=== PATIENT | male | born 1965 | race Caucasian/White ===

== ENCOUNTER 2019-10-18 09:46 | Emergency (ER) | payer BC ==
[~2019-10-18] VITALS: Ht 182.9 cm; Wt 83.9 kg
--- NOTE | 2019-10-18 10:08 | Emergency Department Note ---
History of Present Illnes History of Present Illness Chief Complaint: Neurological History of Present Illness This is a 54 year old male Chief Complaint Comment WHILE DRIVING, BECAME LIGH THEADED X 2 LASTING APPROX 10s ALONG WITH EPISODE OF DIFFICULTY BREATHING, AND HARD TO CATCH HIS BREATH. C/O OF SHARP PAIN TO LEFT ARM THAT RUNS FROM ELBOW TO SHOULDER. Endorses a brief episode of Cp with this. This has been going on for years intermittently. He sates he has had a negative work up in the past. No symptoms at this time. 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 Any updates have been documented here. Past Medical History Recent Fever: No Clinical Suspicion of Infectio: No New/Unexplained Change in Ment: No Past Medical History: Hypertension Past Surgical History: Back Surgery Other Surgery: 5 CERVICAL INFUSION LOWER BACK SX Social History Smoking Cessation: Never Smoker Counseling Performed: No Alcohol Use: None Any Illegal Drug Use: No Other Any Pre-Existing Lines (PICC,: No Review of Systems Review of Systems Constitutional: Reports no symptoms EENTM: Reports no symptoms Cardiovascular: Reports no symptoms Respiratory: Reports no symptoms Gastrointestinal: Reports no symptoms Genitourinary: Reports no symptoms Musculoskeletal: Reports no symptoms Integumentary: Reports no symptoms Neurological: Reports no symptoms Psychological: Reports no symptoms Endocrine: Reports no symptoms Hematological/Lymphatic: Reports no symptoms Physical Exam Related Data Allergies: Coded Allergies: No Known Allergies (Unverified , 10/18/19) Triage Vital Signs Vital Signs Date Time Temp Pulse Resp B/P (MAP) Pulse Ox O2 Delivery O2 Flow Rate FiO2 10/18/19 09:50 98.7 70 18 138/86 97 Room Air Vital signs reviewed: Yes Physical Exam CONSTITUTIONAL Constitutional: Present well-developed, Present well-nourished HENT HENT: Present normocephalic, Present atraumatic, Present oropharynx clear/moist, Present nose normal HENT L/R: Present left ext ear normal, Present right ext ear normal EYES Eyes: Reports PERRL, Reports conjunctivae normal NECK Neck: Present ROM normal PULMONARY Pulmonary: Present effort normal, Present breath sounds normal CARDIOVASCULAR Cardiovascular: Present regular rhythm, Present heart sounds normal, Present capillary refill normal, Present normal rate GASTROINTESTINAL Abdominal: Present soft, Present nontender, Present bowel sounds normal GENITOURINARY Genitourinary: Present exam deferred SKIN Skin: Present warm, Present dry MUSCULOSKELETAL Musculoskeletal: Present ROM normal NEUROLOGICAL Neurological: Present alert, Present oriented x 3, Present no gross motor or sensory deficits PSYCHOLOGICAL Psychological: Present mood/affect normal, Present judgement normal Procedures 12 Lead ECG Interpretation ECG Interpretation : ECG: ECG 1 Can Vacuum Tester: Interpreted by ED physician Date: Oct 18, 2019 Rhythm: sinus rhythm Rate: normal BPM: 60 QRS axis: normal ST segments normal: Yes T waves normal: Yes Clinical Impression: normal ECG Assessment & Plan Medical Decision Making MDM 54-year-old male with a past medical history significant for hypertension who presents to the emergency department for a brief episode of chest discomfort and arm tingling. He states this is intermittently in the past. Examination shows no overall well-appearing male in no acute distress, vital signs stable, within except limits. Initial differential includes ACS versus pneumonia versus muscular skeletal pain versus anxiety. Workup shows no sig abnormalities. Doubt emergent process at this time. I discussed results patient as well as expected disease time course and management. They will follow up with their primary care provider or return to the emergency department for new or worsening symptoms. Patient's appropriate for discharge. Part of this note was dictated with Reed and is subject to recognition errors. Reassessment Reassessment time: 10:14 Reassessment Well appearing, NAD Assessment & Plan Final Impression: (1) Chest discomfort Depart Disposition: HOME, SELF-CARE Last Vital Signs Date Time Temp Pulse Resp B/P (MAP) Pulse Ox O2 Delivery O2 Flow Rate FiO2 10/18/19 10:02 72 12 141/81 98 Room Air 10/18/19 09:50 98.7 MAXIMINO CASTELLANO MD Oct 18, 2019 10:08
[2019-10-18] MEDS ORDERED: ASPIRIN 81 MG CHEW TAB PO ONE (10:15)
[2019-10-18 10:23] LABS: BASOPHILS % 1.3 % (0.0-1.0); EOSINOPHILS # (AUTO) 0.1 (0.0-0.4); EOSINOPHILS % 2.5 % (0.0-6.0); HEMATOCRIT 45.7 % (38.2-49.6); HEMOGLOBIN 15.6 g/dL (14.0-18.0); LYMPHOCYTES # (AUTO) 1.5 (1.0-3.2); LYMPHOCYTES % 45.5 % (18.0-39.1); MEAN CORPUSCULAR HEMOGLOBIN 29.2 pg (28-32); MEAN CORPUSCULAR HGB CONC 34.1 g/dL (31-35); MEAN CORPUSCULAR VOLUME 85.4 fL (81-99); MONOCYTES # (AUTO) 0.5 (0.2-0.8); MONOCYTES % 16.3 % (4.4-11.3); NEUTROPHILS # (AUTO) 1.1 (2.1-6.9); NEUTROPHILS % 34.1 % (38.7-80.0); PLATELET COUNT 257 x10e3/uL (140-360); RED BLOOD COUNT 5.35 x10e6/uL (4.3-5.7); RED CELL DISTRIBUTION WIDTH 12.2 % (11.7-14.4)
[2019-10-18 10:41] LABS: ALANINE AMINOTRANSFERASE 33 IU/L (0-55); ALBUMIN 4.6 g/dL (3.5-5.0); ALBUMIN/GLOBULIN RATIO 1.4 (0.8-2.0); ALKALINE PHOSPHATASE 61 IU/L (40-150); ANION GAP 16.1 mmol/L (8-16); BLOOD UREA NITROGEN 13 mg/dL (7-26); BUN/CREATININE RATIO 14 (6-25); CALCIUM 9.8 mg/dL (8.4-10.2); CARBON DIOXIDE 24 mmol/L (22-29); CHLORIDE 104 mmol/L (98-107); CREATINE KINASE 166 IU/L (30-200); EST GLOMERULAR FILTRATION RATE > 60 ML/MIN (60-); GLUCOSE 99 mg/dL (74-118); POTASSIUM 4.1 mmol/L (3.5-5.1); SODIUM 140 mmol/L (136-145)
--- NOTE | 2019-10-18 10:46 | Diagnostic Imaging Report ---
TECHNIQUE: Frontal view of the chest. INDICATION: ^SHORT OF BREATH ^[id number] ^[id number] COMPARISON: None DISCUSSION: Limited evaluation due to portable technique. Lines and hardware: Overlying EKG leads are noted. Partially visualized cervical fusion changes are noted. Heart and mediastinum: Cardiomediastinal silhouette, pulmonary vascularity and mediastinal contours are within normal limits. Lungs and pleura: No focal airspace consolidation. No pleural effusion. No pneumothorax. Soft tissues and bones: No acute abnormality. Focal advanced degenerative changes of the right acromioclavicular joint are noted. IMPRESSION: Negative for acute intrathoracic process. Signed by: Joshua Castellon MD on 10/18/2019 10:42 AM
--- OUTSIDE RECORDS SUMMARY | 2019-10-18 11:10 | XMS REPORT | Continuity of Care Document ---
Author Author [facility] t Organization [facility] Address [address] [place] [address] Phone Unavailable Care Team Providers Care Architect Marine Name Role Phone Wilmar Sarabia Attphytristen Unavailable Payers Payer Name Policy Type Policy Number Effective Date Expiration Date S ource Problems This patient has no known problems. Allergies, Adverse Reactions, Alerts Allergy Name Allergy Type Status Severity Reaction(s) Onset Date Inacti ve Date Treating Clinician Comments Source No Known Allergies DA Active U 2019-07-04 00:00:00 [facility] No Known Allergies DA Active U 2019-03-10 00:00:00 [facility] No Known Allergies DA Active U 2015-07-23 00:00:00 [facility] Medications This patient has no known medications. Procedures This patient has no known procedures. Results Test Description Test Time Test Comments Results Result Comments Source CHEST SINGLE (PORTABLE) 2019-10-18 10:41:00 [facility] [address] [address] Patient Name: JESUS MARS MR #: [id number] : 1965 Age/Sex: 54/M Req #: [id number] Adm Physician: Ordered by: Maximino Sarabia MD Report #: [id number] Location: ER Room/Bed: Procedure: [id number] DX/CHEST SINGLE (PORTABLE) Exam Date: 10/18/19 Exam Time: 957 REPORT STATUS: Signed TECHNIQUE: Frontal view of the chest. INDICATION: SHORT OF BREATH [id number] COMPARISON: None DISCUSSION: Limited evaluation due to portable technique. Lines and hardware: Overlying EKG leads are noted. Partially visualized cervical fusion changes are noted. Heart and mediastinum: Cardiomediastinal silhouette, pulmonary vascularity and mediastinal contours are within normal limits. Lungs and pleura: No focal airspace consolidation. No pleural effusion. No pneumothorax. Soft tissues and bones: No acute abnormality. Focal advanced degenerative changes of the right acromioclavicular joint are noted. IMPRESSION: Negative for acute intrathoracic process. Signed by: Adebayo Castellon MD on 10/18/2019 10:42 AM Dictated By: ADEBAYO CASTELLON MD 1042 Transcribed By: VILMA on 10/18/19 1042 COPY TO: MAXIMINO SARABIA MD COMPREHENSIVE METABOLIC PANEL 2019-09-29 15:07:00 Test Item SODIUM (test code = NA) 134 mmol/L 137-145 L POTASSIUM (test code = K) 3.8 mmol/L 3.4-5.0 N CHLORIDE (test code = CL) 99 mmol/L 98-107 N CARBON DIOXIDE (test code = CO2) 28 mmol/L 22-30 N GLUCOSE (test code = GLU) 94 mg/dL 74-106 N BLOOD UREA NITROGEN (test code = BUN) 16 mg/dL 9-20 N GLOMERULAR FILTRATION RATE (test code = GFR) 149 >60 The estimated glomerular filtration rate is computed usingpatient race, age (>18), sex, and serum creatinine. If anyof the needed data elements are missing the Laboratory cannot compute an estimation of the glomerular filtration rate. CREATININE (test code = CREAT) 0.6 mg/dL 0.7-1.3 L TOTAL PROTEIN (test code = PROT) 6.7 g/dL 6.3-8.2 N ALBUMIN (test code = ALB) 3.8 g/dL 3.5-5.0 N CALCIUM (test code = CA) 8.1 mg/dL 8.4-10.2 L BILIRUBIN TOTAL (test code = BILT) 0.6 mg/dL 0.2-1.3 N "A positive bias may occur for patients taking Eltrombopag(a bone marrow stimulant used to treat thrombocytopenia andaplastic anemia)." BILIRUBIN CONJUGATED (test code = BILCON) 0 mg/dL 0-0.3 N "A positive bias may occur for patients taking Eltrombopag(a bone marrow stimulant used to treat thrombocytopenia andaplastic anemia)." CONJUGATED BILIRUBIN IS THE REPLACEMENT ASSAY FOR DIRECTBILIRUBIN. BILIRUBIN UNCONJUGATED (test code = BILUNC) 0.3 mg/dL 0-1.1 N SGOT/AST (test code = AST) 67 U/L 15-46 H SGPT/ALT (test code = ALT) 59 U/L 0-34 H ALKALINE PHOSPHATASE (test code = ALKP) 49 U/L 38-126 N COMPREHENSIVE METABOLIC [id number] 15:06:00* Test Item Value Reference Range Interpretation Comments SODIUM (test code = NA) 134 mmol/L 137-145 L POTASSIUM (test code = K) 3.8 mmol/L 3.4-5.0 N CHLORIDE (test code = CL) 99 mmol/L 98-107 N CARBON DIOXIDE (test code = CO2) 28 mmol/L 22-30 N GLUCOSE (test code = GLU) 94 mg/dL 74-106 N BLOOD UREA NITROGEN (test code = BUN) 16 mg/dL 9-20 N GLOMERULAR FILTRATION RATE (test code = GFR) 149 >60 The estimated glomerular filtration rate is computed usingpatient race, age (>18), sex, and serum creatinine. If anyof the needed data elements are missing the Laboratory cannot compute an estimation of the glomerular filtration rate. CREATININE (test code = CREAT) 0.6 mg/dL 0.7-1.3 L TOTAL PROTEIN (test code = PROT) 6.7 g/dL 6.3-8.2 N ALBUMIN (test code = ALB) 3.8 g/dL 3.5-5.0 N CALCIUM (test code = CA) 8.1 mg/dL 8.4-10.2 L BILIRUBIN TOTAL (test code = BILT) 0.6 mg/dL 0.2-1.3 N "A positive bias may occur for patients taking Eltrombopag(a bone marrow stimulant used to treat thrombocytopenia andaplastic anemia)." BILIRUBIN CONJUGATED (test code = BILCON) 0 mg/dL 0-0.3 N "A positive bias may occur for patients taking Eltrombopag(a bone marrow stimulant used to treat thrombocytopenia andaplastic anemia)." CONJUGATED BILIRUBIN IS THE REPLACEMENT ASSAY FOR DIRECTBILIRUBIN. BILIRUBIN UNCONJUGATED (test code = BILUNC) 0.3 mg/dL 0-1.1 N SGOT/AST (test code = AST) 67 U/L 15-46 H SGPT/ALT (test code = ALT) U/L 0-34 ALKALINE PHOSPHATASE (test code = ALKP) 49 U/L 38-126 N CBC W/AUTO [id number] 14:15:00* Test Item Value Reference Range Interpretation Comments WHITE BLOOD CELL (test code = WBC) 2.5 x10 3/uL 5.0-12.0 L RED BLOOD CELL (test code = RBC) 5.13 x10 6/uL 4.70-6.10 N HEMOGLOBIN (test code = HGB) 14.9 g/dL 14.0-18.0 N HEMATOCRIT (test code = HCT) 45.5 % 37.0-49.0 N MEAN CELL VOLUME (test code = MCV) 89 fL 80-94 N MEAN CELL HGB (test code = MCH) 29.0 pg 27-31 N MEAN CELL HGB CONCENTRATION (test code = MCHC) 32.7 g/dL 33-37 L RED CELL DISTRIBUTION WIDTH (test code = RDW) 11.9 % 11.5-15. 5 N PLATELET COUNT (test code = PLT) 166 x10 3/uL 130-400 N MEAN PLATELET VOLUME (test code = MPV) 9.5 fL 9.4-16.4 N NEUTROPHIL % (test code = NT%) 61.1 % 43-65 N IMMATURE GRANULOCYTE % (test code = IG%) 0.4 % 0.0-2.0 N LYMPHOCYTE % (test code = LY%) 34.6 % 20.5-45.5 N MONOCYTE % (test code = MO%) 3.9 % 5.5-11.7 L EOSINOPHIL % (test code = EO%) 0.0 % 0.9-2.9 L BASOPHIL % (test code = BA%) 0.0 % 0.2-1.0 L NUCLEATED RBC % (test code = NRBC%) 0.0 % 0-1.0 N NEUTROPHIL # (test code = NT#) 1.55 x10 3/uL 2.2-4.8 L IMMATURE GRANULOCYTE # (test code = IG#) 0.01 x10 3/uL 0-0.03 N LYMPHOCYTE # (test code = LY#) 0.88 x10 3/uL 1.3-2.9 L MONOCYTE # (test code = MO#) 0.10 x10 3/uL 0.3-0.8 L EOSINOPHIL # (test code = EO#) 0.00 x10 3/uL 0.0-0.2 N BASOPHIL # (test code = BA#) 0.00 x10 3/uL 0.0-0.1 N PLATELET ESTIMATE (test code = PLTEST) ADEQUATE ADEQUATE PLATELET MORPHOLOGY (test code = PLTMORPH) NORMAL NORMAL WBC [id number] 14:15:00* Test Item Value Reference Range Interpretation Comments TOTAL CELLS COUNTED (test code = TCC) 100 #CELLS SEGMENTED NEUTROPHILS (test code = SEG) 64 % 43-65 N BAND NEUTROPHIL (test code = BAND) 2 % 0-1 H LYMPHOCYTE (test code = LYMPH) 14 % 20.5-45.5 L ATYPICAL LYMPH (test code = ALYMPH) 13 % 0-1 H MONOCYTE (test code = MON) 7 % 5.5-11.7 N ANISOCYTOSIS (test code = ANISO) 1+ NONE SEEN A MICROCYTOSIS (test code = MICR) 1+ NONE SEEN A CBC W/AUTO [id number] 14:14:00* Test Item Value Reference Range Interpretation Comments WHITE BLOOD CELL (test code = WBC) 2.5 x10 3/uL 5.0-12.0 L RED BLOOD CELL (test code = RBC) 5.13 x10 6/uL 4.70-6.10 N HEMOGLOBIN (test code = HGB) 14.9 g/dL 14.0-18.0 N HEMATOCRIT (test code = HCT) 45.5 % 37.0-49.0 N MEAN CELL VOLUME (test code = MCV) 89 fL 80-94 N MEAN CELL HGB (test code = MCH) 29.0 pg 27-31 N MEAN CELL HGB CONCENTRATION (test code = MCHC) 32.7 g/dL 33-37 L RED CELL DISTRIBUTION WIDTH (test code = RDW) 11.9 % 11.5-15. 5 N PLATELET COUNT (test code = PLT) 166 x10 3/uL 130-400 N MEAN PLATELET VOLUME (test code = MPV) 9.5 fL 9.4-16.4 N NEUTROPHIL % (test code = NT%) 61.1 % 43-65 N IMMATURE GRANULOCYTE % (test code = IG%) 0.4 % 0.0-2.0 N LYMPHOCYTE % (test code = LY%) 34.6 % 20.5-45.5 N MONOCYTE % (test code = MO%) 3.9 % 5.5-11.7 L EOSINOPHIL % (test code = EO%) 0.0 % 0.9-2.9 L BASOPHIL % (test code = BA%) 0.0 % 0.2-1.0 L NUCLEATED RBC % (test code = NRBC%) 0.0 % 0-1.0 N NEUTROPHIL # (test code = NT#) 1.55 x10 3/uL 2.2-4.8 L IMMATURE GRANULOCYTE # (test code = IG#) 0.01 x10 3/uL 0-0.03 N LYMPHOCYTE # (test code = LY#) 0.88 x10 3/uL 1.3-2.9 L MONOCYTE # (test code = MO#) 0.10 x10 3/uL 0.3-0.8 L EOSINOPHIL # (test code = EO#) 0.00 x10 3/uL 0.0-0.2 N BASOPHIL # (test code = BA#) 0.00 x10 3/uL 0.0-0.1 N WBC [id number] 14:14:00* Test Item Value Reference Range Interpretation Comments TOTAL CELLS COUNTED (test code = TCC) #CELLS SEGMENTED NEUTROPHILS (test code = SEG) % 43-65 LYMPHOCYTE (test code = LYMPH) % 20.5-45.5 TROPONIN I [id number] 13:50:00* Test Item Value Reference Range Interpretation Comments TROPONIN I RAPID (test code = TROPIRAP) 0.00 ng/mL 0.00-0.079 N ISTAT TROPONIN I CRITERIA0.00-0.08 ng/mL - Negative>0.08 ng/mL - Positive The use of serial sampling and testing protocol is arecommended practice.An elevated troponin level alone is often not sufficient fordiagnosis of myocardial infarction. Troponin results obtained by different assays may vary.Evaluation of the extent of myocardial damage based onincrease of troponin would be valid only if similarmethodology is used. CBC W/AUTO [id number] 13:40:00* Test Item Value Reference Range Interpretation Comments WHITE BLOOD CELL (test code = WBC) 2.5 x10 3/uL 5.0-12.0 L RED BLOOD CELL (test code = RBC) 5.13 x10 6/uL 4.70-6.10 N HEMOGLOBIN (test code = HGB) 14.9 g/dL 14.0-18.0 N HEMATOCRIT (test code = HCT) 45.5 % 37.0-49.0 N MEAN CELL VOLUME (test code = MCV) 89 fL 80-94 N MEAN CELL HGB (test code = MCH) 29.0 pg 27-31 N MEAN CELL HGB CONCENTRATION (test code = MCHC) 32.7 g/dL 33-37 L RED CELL DISTRIBUTION WIDTH (test code = RDW) 11.9 % 11.5-15. 5 N PLATELET COUNT (test code = PLT) 166 x10 3/uL 130-400 N MEAN PLATELET VOLUME (test code = MPV) 9.5 fL 9.4-16.4 N NEUTROPHIL % (test code = NT%) 61.1 % 43-65 N IMMATURE GRANULOCYTE % (test code = IG%) 0.4 % 0.0-2.0 N LYMPHOCYTE % (test code = LY%) 34.6 % 20.5-45.5 N MONOCYTE % (test code = MO%) 3.9 % 5.5-11.7 L EOSINOPHIL % (test code = EO%) 0.0 % 0.9-2.9 L BASOPHIL % (test code = BA%) 0.0 % 0.2-1.0 L NUCLEATED RBC % (test code = NRBC%) 0.0 % 0-1.0 N NEUTROPHIL # (test code = NT#) 1.55 x10 3/uL 2.2-4.8 L IMMATURE GRANULOCYTE # (test code = IG#) 0.01 x10 3/uL 0-0.03 N LYMPHOCYTE # (test code = LY#) 0.88 x10 3/uL 1.3-2.9 L MONOCYTE # (test code = MO#) 0.10 x10 3/uL 0.3-0.8 L EOSINOPHIL # (test code = EO#) 0.00 x10 3/uL 0.0-0.2 N BASOPHIL # (test code = BA#) 0.00 x10 3/uL 0.0-0.1 N - XR CHEST 1 [id number] 10:33:00 FAX: Jailyn Plata [phone] [place]: St: PRE FAX: Slava Wray [phone] Name: JESUS MARS [facility] : 1965 Age/S: 54/M [address] Unit #: [id number] Loc: [place] [address] Phys: Jailyn Plata [employer] SUPERVISOR Acct: [id number] Dis Date: Status: PRE ER PHONE #: [phone] Exam Date: 09/29/2019 1035 FAX #: [phone] Reason: cp/sob.cough EXAMS: CPT CODE: [id number] XR CHEST 1 V 92860 EXAM: - XR CHEST 1 V Location code:C3 HISTORY: Pneumonia COMPARISON: 07/04/2019 FINDINGS: Frontal view of the chest is submitted. Heart size and vascularity are within normal limits. Minor stable linear scarring/atelectasis present at the left lung base. The lungs are clear of focal consolidation. No effusion or evidence of pneumothorax.. No acute osseous pathology. Cervical hardware is noted. IMPRESSION 1. No radiographic evidence of acute cardiopulmonary process. at 1033 Reported and signed by: Ade Eldridge MD CC: Jailyn Plata [employer] SUPERVISOR; Slava Silva DO Technologist: Agustín Torres Trnscrd Date/Time/By: 09/29/2019 (1033) : By: [email or web address] PAGE 1 Signed Report FAX: Jailyn Plata [phone] [place]: St: PRE FAX: Slava Wray [phone] Name: JESUS MARS [facility] : 1965 Age/S: 54/M [address] Unit #: [id number] Loc: [place], [place] [address] Phys: Jailyn Plata [employer] SUPERVISOR Acct: [id number] Dis Date: Status: PRE ER PHONE #: [phone] Exam Date: 09/29/2019 1035 FAX #: [phone] Reason: cp/sob.cough EXAMS: CPT CODE: [id number] XR CHEST 1 V 63330 <Continued> Orig Print D/T: S: 09/29/2019 (8116) PAGE 2 Signed Report - CT C-SPINE W/O [id number] 15:38:00 FAX: Lexa Hebert [phone] [place]: St: REG FAX: Slava Wray [phone] Name: JESUS MARS [facility] : 1965 Age/S: 54/M [address] Unit: [id number] Loc: [place] [address] Phys: Lexa Delacruz MD Acct: [id number] Dis Date: Status: REG CLI PHONE #: [phone] Exam Date: 07/07/2019 1301 FAX #: [phone] Reason: OTHER CERVICAL DISC DI SPLACEMENT, UNSP CERVICAL EXAMS: CPT CODE: [id number] CT C-SPINE W/O CONT 33209 Dictation location: U19. CT CERVICAL SPINE WITHOUT CONTRAST; SAGITTAL AND CORONAL REFORMATTED VIEWS. HISTORY: OTHER CERVICAL DISC DISPLACEMENT, UNSP CERVICAL REGION COMPARISON: Outside CT cervical spine on 03/21/19 TECHNIQUE: Axial CT images of the cervical spine were obtained with coronal and sagittal reformatted v iews. Automated exposure control, iterative reconstruction technique, and /or adjustment of mA and/or kV according to patient's size was utilized fo r radiation dose reduction. IV CONTRAST: None. FINDI NGS: The cervical alignment is straightened. Again noted is an an terior cervical fusion from C3-C7 with an anterior plate, interbody cages and intervertebral screws. No bony fusion of the disc levels. There is also posterior fusion from C3-C7 with bilateral rods and translaminar screws. No definite evidence of hardware complication. The right marine mechanic ior screws at C3, C4 and C5 abut the foramen transversarium but likely topete s not extend into it. The right posterior screw at C6 is likely at the ed ge of the foramina without definite extension into it. No cervical spine fracture or subluxation. No prevertebral soft tissue swelling. At C2-C3, left uncovertebral hypertrophy and facet arthrosis causes moderate left neuroforaminal narrowing. At C3-C4, right uncov ertebral hypertrophy narrows the right lateral recess with moderate to sev ere right neuroforaminal narrowing. At C4-C5 bilateral uncovertebr al hypertrophy causes no significant spinal canal stenosis and neuroforami nal narrowing. At C5-C6, bilateral uncovertebral hypertrophy cause s no significant spinal canal stenosis and moderate bilateral neuroforamin al narrowing. At C6-C7, uncovertebral hypertrophy more pronounced on the left side PAGE 1 Signed Report (CONTINUED) FAX: Lexa Hebert [phone] [place]: [facility]: REG FAX: Slava Wray [phone] Name: JESUS MARS [facility] : 1965 Age/S: 54/ M [address] Unit: [id number] Loc: [place] [address] Phys: Lexa Delacruz MD Acct: [id number] Dis Date: atus: REG CLI PHONE #: [phone] Exam Kevin e: 07/07/2019 1301 FAX #: [phone] Reason: OTHER CERVICAL DISC DISPLACEMENT, UNSP CERVICAL EXAMS: CPT CODE: [id number] CT C-SPINE W/O CONT 15466 <Continued> causes mild right and moderate left neuroforaminal narrowing without significant spinal canal stenosis. At C7-T1, no bony spinal canal stenosis and neuroforaminal narrowing. IMPRESSION: Anterior posterior cervical fusion of C3-C7 without bony fusion of the disc levels. Cervical spondylosis with multilevel neuroforaminal narrowing as described above. at 1538 Reported and signed by: Allie Anderson MD CC: Lexa Delacruz MD; Slava Silva DO Technologist: Poly Hays Trnscrd Dt/Tm: 07/07/2019 (5978) [email or web address] Orig Print D/T: S: 07/07/2019 (8407 PAGE 2 Signed Report BASIC METABOLIC [id number] 09:37:00* Test Item Value Reference Range Interpretation Comments SODIUM (test code = NA) 141 mmol/L 136-145 N POTASSIUM (test code = K) 3.6 mmol/L 3.5-5.1 N CHLORIDE (test code = CL) 106.0 mmol/L 98-107 N CARBON DIOXIDE (test code = CO2) 30.0 mmol/L 21-32 N ANION GAP (test code = GAP) 8.6 10-20 L GLUCOSE (test code = GLU) 106 mg/dL 74-106 N BLOOD UREA NITROGEN (test code = BUN) 14 mg/dL 7-18 N GLOMERULAR FILTRATION RATE (test code = GFR) > 60 mL/min >=60 Estimated GFR by using Modified MDRD formula.Chronic kidney disease is defined as either kidney damageor GFR <60 mL/min/1.73 m2 for >3 months. CREATININE (test code = CREAT) 0.80 mg/dL 0.7-1.3 N BUN/CREATININE RATIO (test code = BUN/CREA) 16.7 10-20 N CALCIUM (test code = CA) 9.3 mg/dL 8.5-10.1 N [id number] 09:37:00* Test Item Value Reference Range Interpretation Comments TROPONIN-I (test code = TROPI) <0.015 ng/mL 0-0.045 N - CT HEAD/BRAIN W/O [id number] 09:31:00 Name: JESUS MARS [facility] : 1965 Age/S: 54 / M [address] [facility] Unit #: [id number] Loc: [place] [address] Phys: Julian Barrios DO Acct: [id number] Dis Date: Status: REG ER PHONE #: [phone] Exam Date: 07/04/2019919 FAX #: [phone] Reason: presyncope EXAMS: CPT CODE: [id number] CT HEAD/BRAIN W/O CONT 05159 HISTORY: Presyncope. COMPARISON: August 02, 2015. Location: [facility]. CT brain without contrast: Automated exposure control. No acute intracranial bleeds or extra- axial collections are noted. No acute territorial vascular infarction is noted. The sulci, gyri, ventricles and subarachnoid spaces and the basilar cisterns are normal for patient's age. No herniation or hydrocephalus or midline shift is noted. Mild periventricular ischemic gliosis is noted. Age-appropriate atrophy is n oted as well. Portions of the visualized paranasal sinuses are nor mal. No obvious bony calvarial defect is noted. IM PRESSION: No acute intracranial bleeds or extra-axial collecti ons. No acute territorial vascular infarction. No herniation or hydrocephalus or midline shift. Chronic w christian matter ischemic disease and atrophy . Elect ronically Signed by Khoi Lui on 07/04/2019 at 0931 Reported and signed by: Josias Lui M.D. CC: SLAVA SILVA Ad am T DO Technologist:Jon Kwon RT(R),(MR),(CT) CTD I: DLP: Trnscb Date/Time: 07/04/2019 (930) [email or web address] Orig Print D/T: S: 07/04/2019 (0934) PAGE 1 Signed Report BASIC METABOLIC [id number] 09:30:00* Test Item Value Reference Range Interpretation Comments SODIUM (test code = NA) 141 mmol/L 136-145 N POTASSIUM (test code = K) 3.6 mmol/L 3.5-5.1 N CHLORIDE (test code = CL) 106.0 mmol/L 98-107 N CARBON DIOXIDE (test code = CO2) mmol/L 21-32 ANION GAP (test code = GAP) 10-20 GLUCOSE (test code = GLU) mg/dL 74-106 BLOOD UREA NITROGEN (test code = BUN) mg/dL 7-18 GLOMERULAR FILTRATION RATE (test code = GFR) mL/min >=60 CREATININE (test code = CREAT) mg/dL 0.7-1.3 BUN/CREATININE RATIO (test code = BUN/CREA) 10-20 CALCIUM (test code = CA) 9.3 mg/dL 8.5-10.1 N [id number] 09:30:00* Test Item Value Reference Range Interpretation Comments TROPONIN-I (test code = TROPI) ng/mL 0-0.045 - XR CHEST 1 [id number] 09:20:00 FAX: Slava Wray [phone] [place]: St: REG FAX: Julian Barrios DO Name: JESUS MARS [facility] : 1965 Age/S: 54/M [address] [facility] Unit #: [id number] Loc: [place] [address] Phys: Julian Barrios DO Acct: [id number] Dis Date: Status: REG ER PHONE #: [phone] Exam Date: 07/04/2019914 FAX #: [phone] Reason: CHEST PAIN EXAMS: CPT CODE: [id number] XR CHEST 1 V 06363 HISTORY: Chest pain. COMPARISON: August 02, 2015. Location: [facility]. No acute infiltrates, effusion or congestion is noted. Cervical fusion in the lower neck. Mild cardiomegaly. IMPRESSION: No acute infiltrates, effusion or congestion. at 0920 Reported and signed by: Josias Lui M.D. CC: SLAVA SILVA Adam T DO Technologist: Nae Weber(Gurmeet) Trnscrd Date/Time/By: 07/04/2019 (919) : By: [email or web address] Orig Print D/T: S: 07/04/2019 (5976) PAGE 1 Signed Report CBC W/O [id number] 09:13:00* Test Item Value Reference Range Interpretation Comments WHITE BLOOD CELL (test code = WBC) 3.6 K/mm3 4.5-12.5 L RED BLOOD CELL (test code = RBC) 4.72 mill/mm3 4.0-5.8 N HEMOGLOBIN (test code = HGB) 14.2 gram/dL 13.0-17.5 N HEMATOCRIT (test code = HCT) 42.5 % 42.0-52.0 N MEAN CELL VOLUME (test code = MCV) 90.0 fL 80-98 N MEAN CELL HGB (test code = MCH) 30.1 picogram 27.0-33.0 N MEAN CELL HGB CONCETRATION (test code = MCHC) 33.4 gram/dL 33.0-36. 0 N RED CELL DISTRIBUTION WIDTH (test code = RDW) 13.1 % 11.6-16. 2 N PLATELET COUNT (test code = PLT) 230 K/mm3 150-450 N MEAN PLATELET VOLUME (test code = MPV) 9.4 fL 6.7-11.0 N CBC W/O [id number] 09:11:00* Test Item Value Reference Range Interpretation Comments WHITE BLOOD CELL (test code = WBC) K/mm3 4.5-12.5 RED BLOOD CELL (test code = RBC) mill/mm3 4.0-5.8 HEMOGLOBIN (test code = HGB) 14.2 gram/dL 13.0-17.5 N HEMATOCRIT (test code = HCT) 42.5 % 42.0-52.0 N MEAN CELL VOLUME (test code = MCV) fL 80-98 MEAN CELL HGB (test code = MCH) picogram 27.0-33.0 MEAN CELL HGB CONCETRATION (test code = MCHC) gram/dL 33.0-36. 0 RED CELL DISTRIBUTION WIDTH (test code = RDW) % 11.6-16. 2 PLATELET COUNT (test code = PLT) K/mm3 150-450 MEAN PLATELET VOLUME (test code = MPV) fL 6.7-11.0 PROTHROMBIN [id number] 17:31:00* Test Item Value Reference Range Interpretation Comments PROTHROMBIN TIME PATIENT (test code = PTP) 12.1 SECONDS 9.2-12.1 N INTERNATIONAL NORMAL RATIO (test code = INR) 1.1 The INR is to be used only for monitoring ORAL ANTICOAGULANTTHERAPY. Indication INR Value1. Prophylaxis/treatment of: Venous Thrombosis, Pulmonary Embolism 2.0 - 3.02. Prevention of systemic embolism from: Tissue heart valves 2.0 - 3.0 Acute myocardial infarction (to present systemic embolism)* 2.0 - 3.0 Valvular heart disease 2.0 - 3.0 Atrial fibrillation 2.0 - 3.03. Mechanical prosthetic valves (high risk) 2.5 - 3.5 * If oral anticoagulant therapy is elected to preventrecurrent myocardial infarction, an INR of 2.5-3.5 isrecommended, consistent with Food and Drug Administrationrecommendations. THROMBOPLASTIN TIME [id number] 17:31:00* Test Item Value Reference Range Interpretation Comments THROMBOPLASTIN TIME PARTIAL (test code = PTT) 26.7 SECONDS 23.4-37. 0 N Therapeutic Range for Heparin EFFECTIVE 08/24/12 Heparin IU/mL aPTT Seconds0.3 64.30.7 88.8 COMPREHENSIVE METABOLIC [id number] 17:13:00* Test Item Value Reference Range Interpretation Comments SODIUM (test code = NA) 136 mmol/L 137-145 L POTASSIUM (test code = K) 4.6 mmol/L 3.4-5.0 N CHLORIDE (test code = CL) 98 mmol/L 98-107 N CARBON DIOXIDE (test code = CO2) 29 mmol/L 22-30 N GLUCOSE (test code = GLU) 95 mg/dL 74-106 N BLOOD UREA NITROGEN (test code = BUN) 18 mg/dL 9-20 N GLOMERULAR FILTRATION RATE (test code = GFR) 124 >60 The estimated glomerular filtration rate is computed usingpatient race, age (>18), sex, and serum creatinine. If anyof the needed data elements are missing the Laboratory cannot compute an estimation of the glomerular filtration rate. CREATININE (test code = CREAT) 0.7 mg/dL 0.7-1.3 N TOTAL PROTEIN (test code = PROT) 7.7 g/dL 6.3-8.2 N ALBUMIN (test code = ALB) 4.1 g/dL 3.5-5.0 N CALCIUM (test code = CA) 9.1 mg/dL 8.4-10.2 N BILIRUBIN TOTAL (test code = BILT) 0.6 mg/dL 0.2-1.3 N BILIRUBIN CONJUGATED (test code = BILCON) 0 mg/dL 0-0.3 N ~~~~~~~~~~~~~~~~~~~~~~~~~~~~~~~~~~~~~~~~~~~~~~~~~~~~~~~~~~~~CONJUGATED BILIRUBIN IS THE REPLACEMENT ASSAY FOR DIRECTBILIRUBIN.~~~~~~~~~~~~~~~~~~~~~~~~~~~~~~~~~~~~~~~~~~~~~~~~~~~~~~~~~~~~ BILIRUBIN UNCONJUGATED (test code = BILUNC) 0.5 mg/dL 0-1.1 N SGOT/AST (test code = AST) 34 U/L 15-46 N SGPT/ALT (test code = ALT) 45 U/L 13-69 N ALKALINE PHOSPHATASE (test code = ALKP) 51 U/L 38-126 N COMPREHENSIVE METABOLIC [id number] 17:01:00* Test Item Value Reference Range Interpretation Comments SODIUM (test code = NA) 136 mmol/L 137-145 L POTASSIUM (test code = K) 4.6 mmol/L 3.4-5.0 N CHLORIDE (test code = CL) 98 mmol/L 98-107 N CARBON DIOXIDE (test code = CO2) 29 mmol/L 22-30 N GLUCOSE (test code = GLU) 95 mg/dL 74-106 N BLOOD UREA NITROGEN (test code = BUN) 18 mg/dL 9-20 N GLOMERULAR FILTRATION RATE (test code = GFR) 124 >60 The estimated glomerular filtration rate is computed usingpatient race, age (>18), sex, and serum creatinine. If anyof the needed data elements are missing the Laboratory cannot compute an estimation of the glomerular filtration rate. CREATININE (test code = CREAT) 0.7 mg/dL 0.7-1.3 N TOTAL PROTEIN (test code = PROT) 7.7 g/dL 6.3-8.2 N ALBUMIN (test code = ALB) 4.1 g/dL 3.5-5.0 N CALCIUM (test code = CA) 9.1 mg/dL 8.4-10.2 N BILIRUBIN TOTAL (test code = BILT) 0.6 mg/dL 0.2-1.3 N BILIRUBIN CONJUGATED (test code = BILCON) 0 mg/dL 0-0.3 N ~~~~~~~~~~~~~~~~~~~~~~~~~~~~~~~~~~~~~~~~~~~~~~~~~~~~~~~~~~~~CONJUGATED BILIRUBIN IS THE REPLACEMENT ASSAY FOR DIRECTBILIRUBIN.~~~~~~~~~~~~~~~~~~~~~~~~~~~~~~~~~~~~~~~~~~~~~~~~~~~~~~~~~~~~ BILIRUBIN UNCONJUGATED (test code = BILUNC) 0.5 mg/dL 0-1.1 N SGOT/AST (test code = AST) 34 U/L 15-46 N SGPT/ALT (test code = ALT) 45 U/L 13-69 N ALKALINE PHOSPHATASE (test code = ALKP) U/L 38-126 CBC W/AUTO [id number] 16:33:00* Test Item Value Reference Range Interpretation Comments WHITE BLOOD CELL (test code = WBC) 6.7 x10 3/uL 5.0-12.0 N RED BLOOD CELL (test code = RBC) 5.10 x10 6/uL 4.70-6.10 N HEMOGLOBIN (test code = HGB) 15.4 g/dL 14.0-18.0 N HEMATOCRIT (test code = HCT) 45.7 % 37.0-49.0 N MEAN CELL VOLUME (test code = MCV) 90 fL 80-94 N MEAN CELL HGB (test code = MCH) 30.2 pg 27-31 N MEAN CELL HGB CONCENTRATION (test code = MCHC) 33.7 g/dL 33-37 N RED CELL DISTRIBUTION WIDTH (test code = RDW) 11.9 % 11.5-15. 5 N PLATELET COUNT (test code = PLT) 260 x10 3/uL 130-400 N MEAN PLATELET VOLUME (test code = MPV) 9.5 fL 9.4-16.4 N NEUTROPHIL % (test code = NT%) 62.1 % 43-65 N IMMATURE GRANULOCYTE % (test code = IG%) 1.2 % 0.0-2.0 N LYMPHOCYTE % (test code = LY%) 24.4 % 20.5-45.5 N MONOCYTE % (test code = MO%) 9.4 % 5.5-11.7 N EOSINOPHIL % (test code = EO%) 2.2 % 0.9-2.9 N BASOPHIL % (test code = BA%) 0.7 % 0.2-1.0 N NUCLEATED RBC % (test code = NRBC%) 0.0 % 0-1.0 N NEUTROPHIL # (test code = NT#) 4.17 x10 3/uL 2.2-4.8 N IMMATURE GRANULOCYTE # (test code = IG#) 0.08 x10 3/uL 0-0.03 H LYMPHOCYTE # (test code = LY#) 1.64 x10 3/uL 1.3-2.9 N MONOCYTE # (test code = MO#) 0.63 x10 3/uL 0.3-0.8 N EOSINOPHIL # (test code = EO#) 0.15 x10 3/uL 0.0-0.2 N BASOPHIL # (test code = BA#) 0.05 x10 3/uL 0.0-0.1 N COMPREHENSIVE METABOLIC [id number] 05:46:00* Test Item Value Reference Range Interpretation Comments SODIUM (test code = NA) 137 mmol/L 137-145 N POTASSIUM (test code = K) 4.5 mmol/L 3.4-5.0 N CHLORIDE (test code = CL) 102 mmol/L 98-107 N CARBON DIOXIDE (test code = CO2) 29 mmol/L 22-30 N GLUCOSE (test code = GLU) 116 mg/dL 74-106 H BLOOD UREA NITROGEN (test code = BUN) 17 mg/dL 9-20 N GLOMERULAR FILTRATION RATE (test code = GFR) 149 >60 The estimated glomerular filtration rate is computed usingpatient race, age (>18), sex, and serum creatinine. If anyof the needed data elements are missing the Laboratory cannot compute an estimation of the glomerular filtration rate. CREATININE (test code = CREAT) 0.6 mg/dL 0.7-1.3 L TOTAL PROTEIN (test code = PROT) 6.9 g/dL 6.3-8.2 N ALBUMIN (test code = ALB) 3.7 g/dL 3.5-5.0 N CALCIUM (test code = CA) 9.0 mg/dL 8.4-10.2 N BILIRUBIN TOTAL (test code = BILT) 0.4 mg/dL 0.2-1.3 N BILIRUBIN CONJUGATED (test code = BILCON) 0 mg/dL 0-0.3 N ~~~~~~~~~~~~~~~~~~~~~~~~~~~~~~~~~~~~~~~~~~~~~~~~~~~~~~~~~~~~CONJUGATED BILIRUBIN IS THE REPLACEMENT ASSAY FOR DIRECTBILIRUBIN.~~~~~~~~~~~~~~~~~~~~~~~~~~~~~~~~~~~~~~~~~~~~~~~~~~~~~~~~~~~~ BILIRUBIN UNCONJUGATED (test code = BILUNC) 0.4 mg/dL 0-1.1 N SGOT/AST (test code = AST) 55 U/L 15-46 H SGPT/ALT (test code = ALT) 39 U/L 13-69 N ALKALINE PHOSPHATASE (test code = ALKP) 47 U/L 38-126 N CBC W/AUTO [id number] 05:28:00* Test Item Value Reference Range Interpretation Comments WHITE BLOOD CELL (test code = WBC) 6.3 x10 3/uL 5.0-12.0 N RED BLOOD CELL (test code = RBC) 4.50 x10 6/uL 4.70-6.10 L HEMOGLOBIN (test code = HGB) 13.6 g/dL 14.0-18.0 L HEMATOCRIT (test code = HCT) 41.4 % 37.0-49.0 N MEAN CELL VOLUME (test code = MCV) 92 fL 80-94 N MEAN CELL HGB (test code = MCH) 30.2 pg 27-31 N MEAN CELL HGB CONCENTRATION (test code = MCHC) 32.9 g/dL 33-37 L RED CELL DISTRIBUTION WIDTH (test code = RDW) 12.2 % 11.5-15. 5 N PLATELET COUNT (test code = PLT) 165 x10 3/uL 130-400 N MEAN PLATELET VOLUME (test code = MPV) 10.1 fL 9.4-16.4 N NEUTROPHIL % (test code = NT%) 80.5 % 43-65 H IMMATURE GRANULOCYTE % (test code = IG%) 0.6 % 0.0-2.0 N LYMPHOCYTE % (test code = LY%) 11.7 % 20.5-45.5 L MONOCYTE % (test code = MO%) 6.7 % 5.5-11.7 N EOSINOPHIL % (test code = EO%) 0.2 % 0.9-2.9 L BASOPHIL % (test code = BA%) 0.3 % 0.2-1.0 N NUCLEATED RBC % (test code = NRBC%) 0.0 % 0-1.0 N NEUTROPHIL # (test code = NT#) 5.03 x10 3/uL 2.2-4.8 H IMMATURE GRANULOCYTE # (test code = IG#) 0.04 x10 3/uL 0-0.03 H LYMPHOCYTE # (test code = LY#) 0.73 x10 3/uL 1.3-2.9 L MONOCYTE # (test code = MO#) 0.42 x10 3/uL 0.3-0.8 N EOSINOPHIL # (test code = EO#) 0.01 x10 3/uL 0.0-0.2 N BASOPHIL # (test code = BA#) 0.02 x10 3/uL 0.0-0.1 N COMPREHENSIVE METABOLIC [id number] 18:36:00* Test Item Value Reference Range Interpretation Comments SODIUM (test code = NA) 136 mmol/L 137-145 L POTASSIUM (test code = K) 4.9 mmol/L 3.4-5.0 N CHLORIDE (test code = CL) 102 mmol/L 98-107 N CARBON DIOXIDE (test code = CO2) 27 mmol/L 22-30 N GLUCOSE (test code = GLU) 136 mg/dL 74-106 H BLOOD UREA NITROGEN (test code = BUN) 15 mg/dL 9-20 N GLOMERULAR FILTRATION RATE (test code = GFR) 124 >60 The estimated glomerular filtration rate is computed usingpatient race, age (>18), sex, and serum creatinine. If anyof the needed data elements are missing the Laboratory cannot compute an estimation of the glomerular filtration rate. CREATININE (test code = CREAT) 0.7 mg/dL 0.7-1.3 N TOTAL PROTEIN (test code = PROT) 7.1 g/dL 6.3-8.2 N ALBUMIN (test code = ALB) 3.7 g/dL 3.5-5.0 N CALCIUM (test code = CA) 8.5 mg/dL 8.4-10.2 N BILIRUBIN TOTAL (test code = BILT) 0.6 mg/dL 0.2-1.3 N BILIRUBIN CONJUGATED (test code = BILCON) 0 mg/dL 0-0.3 N ~~~~~~~~~~~~~~~~~~~~~~~~~~~~~~~~~~~~~~~~~~~~~~~~~~~~~~~~~~~~CONJUGATED BILIRUBIN IS THE REPLACEMENT ASSAY FOR DIRECTBILIRUBIN.~~~~~~~~~~~~~~~~~~~~~~~~~~~~~~~~~~~~~~~~~~~~~~~~~~~~~~~~~~~~ BILIRUBIN UNCONJUGATED (test code = BILUNC) 0.4 mg/dL 0-1.1 N SGOT/AST (test code = AST) 57 U/L 15-46 H SGPT/ALT (test code = ALT) 38 U/L 13-69 N ALKALINE PHOSPHATASE (test code = ALKP) 35 U/L 38-126 L CBC W/AUTO [id number] 18:12:00* Test Item Value Reference Range Interpretation Comments WHITE BLOOD CELL (test code = WBC) 7.3 x10 3/uL 5.0-12.0 N RED BLOOD CELL (test code = RBC) 4.63 x10 6/uL 4.70-6.10 L HEMOGLOBIN (test code = HGB) 14.0 g/dL 14.0-18.0 N HEMATOCRIT (test code = HCT) 42.6 % 37.0-49.0 N MEAN CELL VOLUME (test code = MCV) 92 fL 80-94 N MEAN CELL HGB (test code = MCH) 30.2 pg 27-31 N MEAN CELL HGB CONCENTRATION (test code = MCHC) 32.9 g/dL 33-37 L RED CELL DISTRIBUTION WIDTH (test code = RDW) 12.3 % 11.5-15. 5 N PLATELET COUNT (test code = PLT) 166 x10 3/uL 130-400 N MEAN PLATELET VOLUME (test code = MPV) 10.2 fL 9.4-16.4 N NEUTROPHIL % (test code = NT%) 83.9 % 43-65 H IMMATURE GRANULOCYTE % (test code = IG%) 0.4 % 0.0-2.0 N LYMPHOCYTE % (test code = LY%) 9.4 % 20.5-45.5 L MONOCYTE % (test code = MO%) 6.1 % 5.5-11.7 N EOSINOPHIL % (test code = EO%) 0.1 % 0.9-2.9 L BASOPHIL % (test code = BA%) 0.1 % 0.2-1.0 L NUCLEATED RBC % (test code = NRBC%) 0.0 % 0-1.0 N NEUTROPHIL # (test code = NT#) 6.13 x10 3/uL 2.2-4.8 H IMMATURE GRANULOCYTE # (test code = IG#) 0.03 x10 3/uL 0-0.03 N LYMPHOCYTE # (test code = LY#) 0.69 x10 3/uL 1.3-2.9 L MONOCYTE # (test code = MO#) 0.45 x10 3/uL 0.3-0.8 N EOSINOPHIL # (test code = EO#) 0.01 x10 3/uL 0.0-0.2 N BASOPHIL # (test code = BA#) 0.01 x10 3/uL 0.0-0.1 N [id number] 21:31:00* Test Item Value Reference Range Interpretation Comments GLUBED (test code = GLUBED) 190 MG/DL 74-106 H [id number] 12:15:00* Test Item Value Reference Range Interpretation Comments GLUBED (test code = GLUBED) 129 MG/DL 74-106 H COMPREHENSIVE METABOLIC [id number] 05:01:00* Test Item Value Reference Range Interpretation Comments SODIUM (test code = NA) 135 mmol/L 137-145 L POTASSIUM (test code = K) 4.5 mmol/L 3.4-5.0 N CHLORIDE (test code = CL) 102 mmol/L 98-107 N CARBON DIOXIDE (test code = CO2) 24 mmol/L 22-30 N GLUCOSE (test code = GLU) 151 mg/dL 74-106 H BLOOD UREA NITROGEN (test code = BUN) 18 mg/dL 9-20 N GLOMERULAR FILTRATION RATE (test code = GFR) 107 >60 The estimated glomerular filtration rate is computed usingpatient race, age (>18), sex, and serum creatinine. If anyof the needed data elements are missing the Laboratory cannot compute an estimation of the glomerular filtration rate. CREATININE (test code = CREAT) 0.8 mg/dL 0.7-1.3 N TOTAL PROTEIN (test code = PROT) 6.4 g/dL 6.3-8.2 N ALBUMIN (test code = ALB) 3.4 g/dL 3.5-5.0 L CALCIUM (test code = CA) 8.6 mg/dL 8.4-10.2 N BILIRUBIN TOTAL (test code = BILT) 0.9 mg/dL 0.2-1.3 N BILIRUBIN CONJUGATED (test code = BILCON) 0 mg/dL 0-0.3 N ~~~~~~~~~~~~~~~~~~~~~~~~~~~~~~~~~~~~~~~~~~~~~~~~~~~~~~~~~~~~CONJUGATED BILIRUBIN IS THE REPLACEMENT ASSAY FOR DIRECTBILIRUBIN.~~~~~~~~~~~~~~~~~~~~~~~~~~~~~~~~~~~~~~~~~~~~~~~~~~~~~~~~~~~~ BILIRUBIN UNCONJUGATED (test code = BILUNC) 0.8 mg/dL 0-1.1 N SGOT/AST (test code = AST) 43 U/L 15-46 N SGPT/ALT (test code = ALT) 38 U/L 13-69 N ALKALINE PHOSPHATASE (test code = ALKP) 43 U/L 38-126 N CBC W/AUTO [id number] 04:44:00* Test Item Value Reference Range Interpretation Comments WHITE BLOOD CELL (test code = WBC) 7.7 x10 3/uL 5.0-12.0 N RED BLOOD CELL (test code = RBC) 4.64 x10 6/uL 4.70-6.10 L HEMOGLOBIN (test code = HGB) 14.3 g/dL 14.0-18.0 N HEMATOCRIT (test code = HCT) 42.4 % 37.0-49.0 N MEAN CELL VOLUME (test code = MCV) 91 fL 80-94 N MEAN CELL HGB (test code = MCH) 30.8 pg 27-31 N MEAN CELL HGB CONCENTRATION (test code = MCHC) 33.7 g/dL 33-37 N RED CELL DISTRIBUTION WIDTH (test code = RDW) 12.0 % 11.5-15. 5 N PLATELET COUNT (test code = PLT) 176 x10 3/uL 130-400 N MEAN PLATELET VOLUME (test code = MPV) 10.0 fL 9.4-16.4 N NEUTROPHIL % (test code = NT%) 79.4 % 43-65 H IMMATURE GRANULOCYTE % (test code = IG%) 0.3 % 0.0-2.0 N LYMPHOCYTE % (test code = LY%) 14.0 % 20.5-45.5 L MONOCYTE % (test code = MO%) 6.2 % 5.5-11.7 N EOSINOPHIL % (test code = EO%) 0.0 % 0.9-2.9 L BASOPHIL % (test code = BA%) 0.1 % 0.2-1.0 L NUCLEATED RBC % (test code = NRBC%) 0.0 % 0-1.0 N NEUTROPHIL # (test code = NT#) 6.14 x10 3/uL 2.2-4.8 H IMMATURE GRANULOCYTE # (test code = IG#) 0.02 x10 3/uL 0-0.03 N LYMPHOCYTE # (test code = LY#) 1.08 x10 3/uL 1.3-2.9 L MONOCYTE # (test code = MO#) 0.48 x10 3/uL 0.3-0.8 N EOSINOPHIL # (test code = EO#) 0.00 x10 3/uL 0.0-0.2 N BASOPHIL # (test code = BA#) 0.01 x10 3/uL 0.0-0.1 N UR [id number] 07:21:00* Test Item Value Reference Range Interpretation Comments UR COTININE (test code = COTUT) Negative ng/mL [id number] Performed At: [facility] [id number] Steve Aguilera MD Ph:[phone] PROTHROMBIN [id number] 20:13:00* Test Item Value Reference Range Interpretation Comments PROTHROMBIN TIME PATIENT (test code = PTP) 11.4 SECONDS 9.2-12.1 N INTERNATIONAL NORMAL RATIO (test code = INR) 1.1 The INR is to be used only for monitoring ORAL ANTICOAGULANTTHERAPY. Indication INR Value1. Prophylaxis/treatment of: Venous Thrombosis, Pulmonary Embolism 2.0 - 3.02. Prevention of systemic embolism from: Tissue heart valves 2.0 - 3.0 Acute myocardial infarction (to present systemic embolism)* 2.0 - 3.0 Valvular heart disease 2.0 - 3.0 Atrial fibrillation 2.0 - 3.03. Mechanical prosthetic valves (high risk) 2.5 - 3.5 * If oral anticoagulant therapy is elected to preventrecurrent myocardial infarction, an INR of 2.5-3.5 isrecommended, consistent with Food and Drug Administrationrecommendations. IS PATIENT ON ANTICOAGULANTS ? NOTHROMBOPLASTIN TIME [id number] 20:13:00 * Test Item Value Reference Range Interpretation Comments THROMBOPLASTIN TIME PARTIAL (test code = PTT) 28.9 SECONDS 23.4-37. 0 N Therapeutic Range for Heparin EFFECTIVE 08/24/12 Heparin IU/mL aPTT Seconds0.3 64.30.7 88.8 IS PATIENT ON ANTICOAGULANTS ? NOCBC W/AUTO [id number] 18:32:00* Test Item Value Reference Range Interpretation Comments WHITE BLOOD CELL (test code = WBC) 6.5 x10 3/uL 5.0-12.0 N RED BLOOD CELL (test code = RBC) 5.42 x10 6/uL 4.70-6.10 N HEMOGLOBIN (test code = HGB) 16.8 g/dL 14.0-18.0 N HEMATOCRIT (test code = HCT) 47.4 % 37.0-49.0 N MEAN CELL VOLUME (test code = MCV) 88 fL 80-94 N MEAN CELL HGB (test code = MCH) 31.0 pg 27-31 N MEAN CELL HGB CONCENTRATION (test code = MCHC) 35.4 g/dL 33-37 N RED CELL DISTRIBUTION WIDTH (test code = RDW) 11.9 % 11.5-15. 5 N PLATELET COUNT (test code = PLT) 211 x10 3/uL 130-400 N MEAN PLATELET VOLUME (test code = MPV) 9.9 fL 9.4-16.4 N NEUTROPHIL % (test code = NT%) 71.6 % 43-65 H IMMATURE GRANULOCYTE % (test code = IG%) 0.2 % 0.0-2.0 N LYMPHOCYTE % (test code = LY%) 20.1 % 20.5-45.5 L MONOCYTE % (test code = MO%) 6.7 % 5.5-11.7 N EOSINOPHIL % (test code = EO%) 0.8 % 0.9-2.9 L BASOPHIL % (test code = BA%) 0.6 % 0.2-1.0 N NUCLEATED RBC % (test code = NRBC%) 0.0 % 0-1.0 N NEUTROPHIL # (test code = NT#) 4.68 x10 3/uL 2.2-4.8 N IMMATURE GRANULOCYTE # (test code = IG#) 0.01 x10 3/uL 0-0.03 N LYMPHOCYTE # (test code = LY#) 1.31 x10 3/uL 1.3-2.9 N MONOCYTE # (test code = MO#) 0.44 x10 3/uL 0.3-0.8 N EOSINOPHIL # (test code = EO#) 0.05 x10 3/uL 0.0-0.2 N BASOPHIL # (test code = BA#) 0.04 x10 3/uL 0.0-0.1 N BASIC METABOLIC [id number] 18:09:00* Test Item Value Reference Range Interpretation Comments SODIUM (test code = NA) 138 mmol/L 137-145 N POTASSIUM (test code = K) 3.8 mmol/L 3.4-5.0 N CHLORIDE (test code = CL) 103 mmol/L 98-107 N CARBON DIOXIDE (test code = CO2) 27 mmol/L 22-30 N GLUCOSE (test code = GLU) 111 mg/dL 74-106 H BLOOD UREA NITROGEN (test code = BUN) 18 mg/dL 9-20 N GLOMERULAR FILTRATION RATE (test code = GFR) 107 >60 The estimated glomerular filtration rate is computed usingpatient race, age (>18), sex, and serum creatinine. If anyof the needed data elements are missing the Laboratory cannot compute an estimation of the glomerular filtration rate. CREATININE (test code = CREAT) 0.8 mg/dL 0.7-1.3 N CALCIUM (test code = CA) 9.7 mg/dL 8.4-10.2 N
[2019-10-18 12:59] VITALS: BP 129/89
== END 2019-10-18 13:01 | disposition home or self-care (01) ==
LOC: ER 10:10
DX: R07.89 Other chest pain (principal); R42 Dizziness and giddiness; M79.602 Pain in left arm; I10 Essential (primary) hypertension
CPT/HCPCS: 36415; 71045; 80053; 82550; 82553; 84484; 85025; 93005; 99284

== ENCOUNTER 2022-12-10 12:19 | Emergency (ER) | payer BC ==
[~2022-12-10] VITALS: Ht 182.9 cm; Wt 83.9 kg
[2022-12-10 12:25] VITALS: O2SAT 100
== END 2022-12-10 12:38 | disposition home or self-care (01) ==
LOC: ER 12:26
DX: I10 Essential (primary) hypertension (principal); M54.2 Cervicalgia; G89.29 Other chronic pain
CPT/HCPCS: 99283